=== PATIENT | female | born 1995 | race Caucasian/White ===

== ENCOUNTER 2016-09-18 14:49 | Emergency (ER) | payer OTHER ==
[~2016-09-18] VITALS: Ht 165.1 cm; Wt 86.2 kg
[2016-09-18 16:51] VITALS: BP 124/75
[2016-09-18 16:56] LABS: ABSOLUTE NEUTROPHILS 5.5 thou/uL (1.4-8.2); BASOPHILS 0.5 % (0.0-2.0); HEMATOCRIT 36.9 % (37.0-47.0); HEMOGLOBIN 12.6 gm/dL (12.0-15.0); MCH 28.7 pg (26.0-34.0); MCHC 34.1 g/dL (28.0-37.0); MCV 84.2 fL (80.0-100.0); PLATELET COUNT 343 thou/uL (150-400); POLYS 59.5 % (36.0-66.0); RBC 4.38 mil/uL (4.20-5.00); RDW 15.4 % (10.5-14.5); WBC 9.2 thou/uL (4.0-11.0)
[2016-09-18 16:57] LABS: MANUAL DIFF NO
[2016-09-18 17:06] LABS: ANION GAP 12 mmol/L (7-16); BUN 10 mg/dL (7-18); CALCIUM 9.1 mg/dL (8.5-10.1); CHLORIDE 107 mmol/L (98-107); CO2 20 mmol/L (21-32); CREATININE 0.7 mg/dL (0.6-1.0); GLUCOSE 112 mg/dL (74-106); POTASSIUM 3.6 mmol/L (3.5-5.1); SODIUM 139 mmol/L (136-145)
[2016-09-18 17:10] LABS: ALBUMIN 3.2 g/dL (3.4-5.0); ALKALINE PHOSPHATASE 73 U/L (46-116); SALICYLATE < 2.8 mg/dL (2.8-20.0); SGOT 13 U/L (15-37); SGPT 22 U/L (30-65); TOTAL BILIRUBIN 0.1 mg/dL (<0.1-1.0); TOTAL PROTEIN 7.3 g/dL (6.4-8.2)
[2016-09-18 17:19] LABS: AMP/METHAMP Negative (Negative); BARBITURATES Negative (Negative); BENZODIAZEPINES Negative (Negative); COCAINE Negative (Negative); METHADONE Negative (Negative); OPIATES Negative (Negative); PCP Negative (Negative); THC Negative (Negative)
[2016-09-18 17:21] LABS: ACETAMINOPHEN < 2 ug/mL (10-30)
== END 2016-09-18 20:25 | disposition home or self-care (01) ==
LOC: ER 14:49
PROVIDERS: Nurse Practitioner Family
DX: T74.21XA Adult sexual abuse, confirmed, initial encounter (principal); F25.0 Schizoaffective disorder, bipolar type; F41.9 Anxiety disorder, unspecified; I10 Essential (primary) hypertension; Z88.5 Allergy status to narcotic agent; Z88.0 Allergy status to penicillin; Z88.2 Allergy status to sulfonamides; Z88.8 Allergy status to other drugs, medicaments and biological substances

== ENCOUNTER 2017-03-11 05:20 | Day surgery (SDC) | payer OTHER ==
[~2017-03-11] VITALS: Ht 162.6 cm; Wt 83.9 kg
--- NOTE | ~2017-03-11 | O ---
[facility] [place] [address] OPERATIVE REPORT Name: CITLALI MCFADDEN Room #: [facility] M.R.#: [id number] Admission: 03/11/17 Attend Phys: Yuli Rodríguez DDS Discharge: 03/11/17 Date of : 95 Report #: [id number] THIS REPORT FOR: //name// CC: Yuli Castro DATE OF SERVICE: 03/11/2017 SURGEON: Yuli Rodríguez DDS. OCCUPATIONAL SAFETY SPECIALIST: Vidhi Herrera. DESCRIPTION OF PROCEDURE: Xrays obtained. Throat pack placed. All caries removed. Restorations completed as follows: #2 Mesial Occlusal amalgam. #3 Distal occlusal buccal amalgam with direct pulp cap. #4 Distal occlusal amalgam. #6 Mesial facial Fuji. #10 Distal facial Fuji. #11 Facial Fuji. #13 Distal occlusal buccal amalgam. #14 Mesial occlusal distal buccal amalgam. #15 Mesial occlusal amalgam. #18 Mesial occlusal amalgam. #19 Distal occlusal buccal with direct pulp using amalgam. #20 Occlusal amalgam. #21 Mesial occlusal distal amalgam, facial Fuji. #22 Mesial facial distal Fuji. #26 Facial Fuji. #27 Facial Mesial Fuji. #29 Distal occlusal buccal amalgam. #30 Distal occlusal buccal amalgam. #31 Mesial occlusal buccal amalgam. Prophy, flossing and fluoride varnish placed. Throat pack removed. ANESTHESIA TYPE: General. ESTIMATED BLOOD LOSS: 1 mL. COMMENTS:, Dr. Rodríguez explained to mom the #3 and #19 had decay that was into the nerve. She told her that root canals may be needed in the future. Mom understood. Dr. Rodríguez also informed mom that her jaw may be sore since it was [facility] [address] [place] [address] OPERATIVE REPORT Name: CITLALI MCFADDEN Room #: [facility].#: [id number] Admission: 03/11/17 Attend Phys: Yuli Rodríguez DDS Discharge: 03/11/17 Date of : 95 Report #: [id number] open for approximately 4 hours. Ibuprofen may be used to help alleviate any discomfort. Mom is to call the office if patient experiences any tooth pain. She is also to call and schedule the patient's 6-month recall appointment. <ELECTRONICALLY SIGNED> By: Yuli Rodríguez DDS 03/12/17 1248 1345 1405 Yuli Rodríguez DDS /nt
--- NOTE | ~2017-03-11 | EKG ---
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
--- NOTE | ~2017-03-11 | H ---
[facility] [place] [address] HISTORY AND PHYSICAL Name: CITLALI MCFADDEN Rigo Room #: [facility] M.R.#: [id number] Admission: Attend Phys: Yuli Rodríguez DDS Discharge: Date of : 95 Report #: [id number] THIS REPORT FOR: //name// CC: Yuli Castro The patient is scheduled for outpatient surgery on 03/11/2017. CHIEF COMPLAINT: Dental caries. HISTORY OF PRESENT ILLNESS: This 21-year-old patient presented in my office on 02/11/2017. For the past 5 years, the patient has been in full upper and lower orthodontics. She just had her braces removed. Due to her limited opening, we were unable to obtain x-rays. A clinical exam revealed caries on #11 #19 #21 #22 #23 #24 #26 #27 #29 #30 and #31. Due to her limited opening, the amount of treatment needed to be completed, her complex medical history, the need to obtain x-rays, the patient's mom and I decided the best treatment option would be to complete everything under general anesthesia. I did inform her mother that treatment will most likely change once x-rays are obtained. I also discussed with her the etiology of dental caries. Unfortunately, her mom does not help her brush because the patient lives in an assisted living facility. She has poor oral hygiene. I told mom that the patient will be caries free after leaving the hospital, but there is a high chance she will get recurrent and/or new caries in the future. Mom understood. PAST MEDICAL HISTORY: The patient's mom had a complete history and physical completed on 02/25/2017. The forms will be faxed over to the hospital to be included in her record. ALLERGIES: THE PATIENT'S MOM REPORTS THE PATIENT HAS ALLERGIES TO SULFA, CODEINE, AUGMENTIN, PENICILLIN, PROZAC, HALDOL, MORPHINE, SEROQUEL, PSEUDOEPHEDRINE HCL AND FLUOXETINE. DENTAL EXAMINATION: My clinical examination revealed caries on #11 #19 #21 #22 #23 #24 #26 #27 #29 #30 and #31. X-rays will be obtained while patient is sedated and all treatment will be completed as necessary. IMPRESSION: Dental caries. <ELECTRONICALLY SIGNED> By: Yuli Rodríguez DDS 03/06/17 0951 1001 1020 Yuli Rodríguez DDS /nt
[~2017-03-11 05:20] MED LIST: ALDACTONE25 MG PO; CENTRUM SILVER1 EAC4 PO; CLONAZEPAM 0.50.5 M1 PO; CLOZAPINE100 MG PO; CLOZAPINE200 MG PO; CLOZAPINE25 MG PO; CRANBERRY250 MG PO; EFFEXOR XR75 MG PO; METFORMIN HCL500 MG PO; MINASTRIN 24 F1 EACH PO; NASONEX17 GM NASAL; POT CITRATE-CI1 EACH PO; PROBIOTIC1 EAC1 PO; PROPRANOLOL 1010 M1 PO; TOPAMAX 100 MG100 MG PO; VITAMIN D2000 UNIT PO; XYZAL5 MG PO; ZANTAC 150MG T150 MG PO
[2017-03-11 06:52] LABS: CALCIUM 9.2 mg/dL (8.5-10.1); CREATININE 0.8 mg/dL (0.6-1.0); POTASSIUM 3.7 mmol/L (3.5-5.1)
[2017-03-11 08:07] VITALS: BP 132/88
[2017-03-11 12:07] VITALS: BP 132/88
== END 2017-03-11 13:04 | disposition home or self-care (01) ==
LOC: TBA 05:20 → OR 05:20
PROVIDERS: Anesthesiology
DX: K02.9 Dental caries, unspecified (principal); I10 Essential (primary) hypertension; E11.9 Type 2 diabetes mellitus without complications; G43.909 Migraine, unspecified, not intractable, without status migrainosus; J45.909 Unspecified asthma, uncomplicated; K21.9 Gastro-esophageal reflux disease without esophagitis; F41.8 Other specified anxiety disorders; F25.9 Schizoaffective disorder, unspecified; Z88.0 Allergy status to penicillin; Z87.442 Personal history of urinary calculi; Z88.2 Allergy status to sulfonamides; Z88.6 Allergy status to analgesic agent; Z88.8 Allergy status to other drugs, medicaments and biological substances; Z88.7 Allergy status to serum and vaccine; Z79.899 Other long term (current) drug therapy
CPT/HCPCS: 50010; 50101; 50398; 62110; 62900; 70005

== ENCOUNTER 2017-11-24 18:11 | Emergency (ER) | payer OTHER ==
[~2017-11-24] VITALS: Ht 165.1 cm; Wt 77.1 kg
[2017-11-24 18:45] LABS: URINE BILIRUBIN NEGATIVE (Negative); URINE BLOOD TRACE (Negative); URINE CLARITY CLEAR; URINE COLOR YELLOW; URINE GLUCOSE-RANDOM* NEGATIVE (Negative); URINE KETONES 1+ (Negative); URINE LEUKOCYTES 1+ (Negative); URINE NITRITE POSITIVE (Negative); URINE PROTEIN (DIPSTICK) NEGATIVE (Negative); URINE SPECIFIC GRAVITY 1.015 (1.005-1.035); URINE UROBILINOGEN 0.2 E.U./dl (0.2-1.0)
[2017-11-24 19:02] LABS: CASTS None Seen /LPF (None Seen); CRYSTALS None Seen /LPF (None Seen); SQUAMOUS 4-10 Moderate /LPF (0-3); URINE WBC 6-15 Few /HPF (0-5)
[2017-11-24 19:03] LABS: BACTERIA >30 Many /HPF (None Seen); URINE RBC 0-2 Rare /HPF (0-2)
[2017-11-24 19:22] LABS: ABSOLUTE NEUTROPHILS 6.5 thou/uL (1.4-8.2); BASOPHILS 0.2 % (0.0-2.0); HEMATOCRIT 37.1 % (37.0-47.0); HEMOGLOBIN 12.4 gm/dL (12.0-15.0); LYMPHOCYTES 35.9 % (24.0-44.0); MCH 28.7 pg (26.0-34.0); MCHC 33.6 g/dL (28.0-37.0); MCV 85.4 fL (80.0-100.0); MONOCYTES 6.7 % (1.0-8.0); PLATELET COUNT 366 thou/uL (150-400); POLYS 57.2 % (36.0-66.0); RBC 4.34 mil/uL (4.20-5.00); RDW 14.2 % (10.5-14.5); WBC 11.4 thou/uL (4.0-11.0)
[2017-11-24 19:29] LABS: CREATININE 0.7 mg/dL (0.6-1.0); POTASSIUM 3.6 mmol/L (3.5-5.1)
[2017-11-24] MEDS ORDERED: MACROBID 100 M100 M1 PO (19:52)
== END 2017-11-24 20:08 | disposition home or self-care (01) ==
LOC: ER 18:11
PROVIDERS: Emergency Medicine
DX: N39.0 Urinary tract infection, site not specified (principal); E87.1 Hypo-osmolality and hyponatremia; F41.9 Anxiety disorder, unspecified; F31.9 Bipolar disorder, unspecified; F25.9 Schizoaffective disorder, unspecified; F84.0 Autistic disorder; I10 Essential (primary) hypertension; G43.909 Migraine, unspecified, not intractable, without status migrainosus; K21.9 Gastro-esophageal reflux disease without esophagitis; J45.909 Unspecified asthma, uncomplicated; E11.9 Type 2 diabetes mellitus without complications; Z79.4 Long term (current) use of insulin; Z88.8 Allergy status to other drugs, medicaments and biological substances; Z88.7 Allergy status to serum and vaccine; Z88.5 Allergy status to narcotic agent; Z88.0 Allergy status to penicillin; Z88.2 Allergy status to sulfonamides; Z87.442 Personal history of urinary calculi

== ENCOUNTER 2018-02-21 14:44 | Emergency (ER) | payer OTHER ==
[~2018-02-21] VITALS: Ht 170.2 cm; Wt 78.9 kg
[~2018-02-21 14:44] MED LIST changes: +CITRATE OF MAG296 ML PO; +COLACE100 MG PO; +MACROBID 100 M100 M1 PO
[2018-02-21] MEDS ORDERED: MICROGESTIN FE1 EACH PO (15:19)
[2018-02-21] MEDS ORDERED: MOBIC7.5 MG PO (15:45)
== END 2018-02-21 16:27 | disposition home or self-care (01) ==
LOC: ER 14:44
DX: S13.4XXA Sprain of ligaments of cervical spine, initial encounter (principal); V49.19XA Passenger injured in collision with other motor vehicles in nontraffic accident, initial encounter; Y93.89 Activity, other specified; Y92.410 Unspecified street and highway as the place of occurrence of the external cause; Y99.8 Other external cause status; F25.0 Schizoaffective disorder, bipolar type; I10 Essential (primary) hypertension; G40.909 Epilepsy, unspecified, not intractable, without status epilepticus; K21.9 Gastro-esophageal reflux disease without esophagitis; E11.9 Type 2 diabetes mellitus without complications; J45.909 Unspecified asthma, uncomplicated; Z87.442 Personal history of urinary calculi; Z86.2 Personal history of diseases of the blood and blood-forming organs and certain disorders involving the immune mechanism; Z79.899 Other long term (current) drug therapy; Z88.0 Allergy status to penicillin; Z88.2 Allergy status to sulfonamides; Z88.5 Allergy status to narcotic agent; Z88.7 Allergy status to serum and vaccine; Z88.8 Allergy status to other drugs, medicaments and biological substances

== ENCOUNTER 2018-05-07 19:38 | Emergency (ER) | payer OTHER ==
[~2018-05-07] VITALS: Ht 165.1 cm; Wt 83.5 kg
[~2018-05-07 19:38] MED LIST changes: +MICROGESTIN FE1 EACH PO; +MOBIC7.5 MG PO
[2018-05-07] MEDS ORDERED: IBUPROFEN 800800 M1 PO (21:50)
[2018-05-07 22:06] VITALS: BP 126/70
== END 2018-05-07 22:06 | disposition home or self-care (01) ==
LOC: ER 19:38
DX: S01.81XA Laceration without foreign body of other part of head, initial encounter (principal); S80.02XA Contusion of left knee, initial encounter; F31.9 Bipolar disorder, unspecified; F41.9 Anxiety disorder, unspecified; I10 Essential (primary) hypertension; G43.909 Migraine, unspecified, not intractable, without status migrainosus; K21.9 Gastro-esophageal reflux disease without esophagitis; E11.9 Type 2 diabetes mellitus without complications; E28.2 Polycystic ovarian syndrome; J45.909 Unspecified asthma, uncomplicated; Z88.8 Allergy status to other drugs, medicaments and biological substances; Z88.7 Allergy status to serum and vaccine; Z88.5 Allergy status to narcotic agent; Z88.0 Allergy status to penicillin; Z88.2 Allergy status to sulfonamides; Z87.442 Personal history of urinary calculi; W18.39XA Other fall on same level, initial encounter; Y92.89 Other specified places as the place of occurrence of the external cause; Y93.89 Activity, other specified; Y99.8 Other external cause status

== ENCOUNTER 2018-06-19 05:26 | Day surgery (SDC) | payer OTHER ==
[~2018-06-19] VITALS: Ht 167.6 cm; Wt 82.6 kg
[~2018-06-19 05:26] MED LIST changes: +AIMOVIG AU70 MG/1 ML; +ATROPINE SULFATE2 ML SUBLING; +CITRATE OF MAG296 M1 PO; +CLOZAPINE100 M1 PO; +FOLIC ACID1 MG PO; +GLUCOPHAGE850 MG PO; +IBUPROFEN 800800 M1 PO; +OMEPRAZOLE40 MG PO; +POTASSIUM CITR10 ME1 PO; +PRAZOSIN HCL2 MG PO; +VENTOLIN HFA 1818 GM INH
[2018-06-19 06:46] VITALS: BP 126/82
[2018-06-19 06:47] LABS: CALCIUM 9.4 mg/dL (8.5-10.1); CREATININE 0.8 mg/dL (0.6-1.0); POTASSIUM 3.8 mmol/L (3.5-5.1)
[2018-06-19 06:53] LABS: ALBUMIN 3.5 g/dL (3.4-5.0); TOTAL BILIRUBIN 0.2 mg/dL (<0.1-1.0); TOTAL PROTEIN 8.3 g/dL (6.4-8.2)
--- NOTE | 2018-06-19 08:18 | EKG ---
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 : 1995 Requested By: Yuli Rodríguez Order Number: [id number] MD: Geovany Archuleta Measurements Intervals [place] Rate: 94 P: 18 IN: 147 QRS: 57 QRSD: 94 T: 44 QT: 361 QTc: 452 Interpretive Statements Sinus rhythm Nonspecific ST segment abnormality Compared to ECG 03/11/2017 06:39:39 No significant change was found Electronically Signed On 06-19-2018 8:18:40 YEAST DISTILLER by Geovany Archuleta [email or web address] <ELECTRONICALLY SIGNED> By: Geovany Archuleta MD, [facility] 06/19/1818 643 3 Geovany Archuleta MD, FACC /EPI
[2018-06-19 12:31] VITALS: BP 126/82
--- NOTE | 2018-06-19 13:50 | H ---
[facility] [place] [address] HISTORY AND PHYSICAL Name: CITLALI MCFADDEN Room #: 150-3 [facility] M.R.#: [id number] Admission: 06/19/18 Attend Phys: Yuli Rodríguez DDS Discharge: Date of : 95 Report #: [id number] THIS REPORT FOR: //name// CC: Yuli Castro DATE OF SERVICE: 06/19/2018 She is scheduled for outpatient surgery on 06-19-2018. HISTORY OF PRESENT ILLNESS: The patient presented to my office on 03/16/2018 with gross caries. The patient does not care for her teeth properly and as a result continues to get recurrent as well as new decay. The patient had limited opening making restoring her teeth difficult. The patient has not been reevaluated since her last visit. At this time, the plan is to place stainless steel crowns on 2, 3, 4, 13, 14, 15, 18, 19, 20, 21, 28, 29, 30 and 31. Composite restorations will be placed on 11 facial and 22 facial. Treatment may change and both the patient and the mother have had this explained to them. New x-rays may also be obtained during surgery. DRUG ALLERGIES: According to the patient's last H and P with her PCP on 06/05/2018, the patient has the following allergies: SULFA, PENICILLIN, CODEINE, SEROQUEL, PSEUDOEPHEDRINE HCL, FLUOXETINE, AND MORPHINE. MEDICAL HISTORY: According to the patient's last H and P with her PCP on 06/05/2018, the patient has PCOS, seizure disorder, anxiety, autistic, borderline personality disorder, migraines, prediabetic, kidney stones and tubular renal acidosis. Her H and P on 06/05/2018 has been sent to [facility] and includes her extensive list of medications. ASSESSMENT AND PLAN: All decay will be removed during surgery and restored properly. <ELECTRONICALLY SIGNED> By: Yuli Rodríguez DDS 06/19/18 1350 1424 1438 Yuli Rodríguez DDS /nt
--- NOTE | 2018-06-19 13:50 | O ---
[facility] [place] [address] OPERATIVE REPORT Name: CITLALI MCFADDEN Room #: 150-3 [facility] M.R.#: [id number] Admission: 06/19/18 Attend Phys: Yuli Rodríguez DDS Discharge: Date of : 95 Report #: [id number] THIS REPORT FOR: //name// CC: Yuli Castro DATE OF SERVICE: 06/19/2018 The patient was admitted for outpatient surgery on 06/19/2018. She presented with gross recurrent and new decay on #2, #3, #4, #6, #11, #13, #14, #15, #18, #19, #20, #21, #22, #28, #29, #30 and #31. Dr. Rodríguez was assisted by Vidhi Herrera. The throat pack was placed. All caries were removed. #6 had a mesial distal facial composite sikh placed, #11 and #22 had a facial composite placed, stainless steel crowns were placed on #2, #4 #13, #15, #18, #19, #29 and #31. An indirect pulp cap using limelight was placed on #14. A stainless steel crown was placed over #14. Some of the decay was extensive and extended into the pulp. As a result, Life was used as a direct pulp cap on #3, #20, #21, #28 and #30. Stainless steel crowns were placed on #3, #20, #21, #28 and #30. Throat pack was removed. The patient was under general anesthesia throughout the entire procedure. She lost approximately 10 mL of blood and was discharged on 06/19/2018. Mom was informed that the teeth with a direct pulp caps will most likely need root canal treatment in the future. <ELECTRONICALLY SIGNED> By: Yuli Rodríguez DDS 06/19/18 1350 1326 1341 Yuli Rodríguez DDS /nt
== END 2018-06-19 13:05 | disposition home or self-care (01) ==
LOC: OR 05:26 → TBA 05:26 → OR 12:31
PROVIDERS: Dentist General Practice
DX: K02.9 Dental caries, unspecified (principal); I10 Essential (primary) hypertension; E11.9 Type 2 diabetes mellitus without complications; K21.9 Gastro-esophageal reflux disease without esophagitis; G43.909 Migraine, unspecified, not intractable, without status migrainosus; J45.909 Unspecified asthma, uncomplicated; F41.9 Anxiety disorder, unspecified; F25.9 Schizoaffective disorder, unspecified; Z87.442 Personal history of urinary calculi; Z79.899 Other long term (current) drug therapy; Z88.0 Allergy status to penicillin; Z88.2 Allergy status to sulfonamides; Z88.8 Allergy status to other drugs, medicaments and biological substances; Z98.890 Other specified postprocedural states
CPT/HCPCS: 50010; 50101; 50398; 62110; 62900; 70005

== ENCOUNTER 2020-08-21 13:03 | Inpatient (IN) | payer OTHER ==
[~2020-08-21] VITALS: Ht 165.1 cm; Wt 90.7 kg
--- NOTE | ~2020-08-21 | EEG ---
[facility] [address] [address] ELECTROENCEPHALOGRAM Name: CITLALI MCFADDEN Room #: 457-P [facility] M.R.#: [id number] Admission: 08/21/20 Attend Phys: Maira Vela Discharge: Date of : 95 Report #: [id number] THIS REPORT FOR: //name// DATE OF SERVICE: 08/22/2020 This patient is being evaluated for recurrent seizure. She was going to have a video monitored EEG, but we have not been able to transfer her to the [facility] because they do not have any bed available, so I did an EEG in this patient. EEG was done by placing the electrode by standard 10-20 system of electrode placement. Both referential and sequential montages were used for recording. Background activity in this patient's EEG goes about 10 Hz and 40 microvolt. The patient becomes drowsy and that is associated with bilateral slowing and vertex sharp waves. Photic stimulation was unremarkable. On occasion, it looks like sporadic sharper activity may be present in the right temporal area. IMPRESSION: This patient's EEG does not demonstrate any non-convulsive status are very prominent seizure activity, but some sporadic sharper activity appeared to be present in the right temporal area. I do not have any prior EEG for comparison. The patient has a longstanding history of seizure, but is not possible to tell how many seizures are epileptiform event and how many are non-epileptiform event. For that, this patient will need video monitor EEG, so that her clinical spell can be compared with the EEG activity to see if they correlate. Thank you very much for this referral and if you have any question, please feel free to contact me. By: [id number] Rafa Rios MD /nt
--- NOTE | ~2020-08-21 | HC ---
[facility] [place] [address] CONSULTATION Name: CITLALI MCFADDEN Room #: 457-P [facility] M.R.#: [id number] Admission: 08/21/20 Attend Phys: Maira Auguste Discharge: 08/22/20 Date of : 95 Report #: [id number] THIS REPORT FOR: cc: Baltazar Castro MD,Rafa Funes MD, MD ~ DATE OF SERVICE: 08/22/2020 HISTORY OF PRESENT ILLNESS: This is a 25-year-old female patient on whom a consultation was requested to evaluate the patient for seizure. I was in the Emergency Room yesterday to see a stroke patient when nurse practitioner, Raeann Navarrete asked me a question about this patient that she is here for seizure, but follow up with an epileptologist at [facility]. I had asked her to call her neurologist at [facility] and see what they recommend and if she has further question after talking to them, she can contact me. She contacted her neurologist at [facility] and they recommended transfer to [facility] and the patient was going to be transferred to [facility]. I have asked her if I needed to see her and she said no, because the patient is going to be transferred to [facility] and just waiting for the bed. Today, I got a text from Dr. Recio that mom does not want to go to [facility]. Her text indicated that the patient's mom is not happy with the neurologist there. I called Dr. Recio that this patient is being followed by an epileptologist in conjunction with the nurse practitioner and she is a complicated patient and the place for her to go is tertiary care center like [facility]. Then, a consult was put in and I came to see the patient. The history I get in this patient is that this patient is an adopted child. She was with her mom as a foster child and subsequently she adopted her. She has had a seizure as a child as I understand. She used to go to [facility]. When she became adult, [facility] could not see her and she started going to Dr. Green who is an epileptologist at [facility]. According to mom, Dr. Green saw this patient twice and subsequently she started seeing his nurse practitioner who works in conjunction with Dr. Green and presently this patient is on Topamax 250 mg b.i.d. She keeps having seizures. The description of the seizures is not uniform. One time she said she was in a restaurant and she started having seizure in relation to flickering light. During that time, she raised her hand and she started jerking her head and she was unresponsive for some time. During another seizure, she does variable action. She occasionally shakes the whole body, but most of the time, it is jerking of the head or the neck. Those episodes are still occurring, but they are much subdued after admission. REVIEW OF SYSTEMS: Pretty extensive in this patient. This patient looks like [address] [address] CONSULTATION Name: CITLALI MCFADDEN Room #: 457-P [facility] M.R.#: [id number] Admission: 08/21/20 Attend Phys: Maira Auguste Discharge: 08/22/20 Date of : 95 Report #: [id number] has multiple psychiatric issues. She has a history of polycystic ovarian syndrome. She has a history of kidney stones, history of asthma, history of sepsis, seizure disorder. I do not think it has been established rather seizure disorder is all epileptic or some of the events are non-epileptiform event. She is on multiple psychiatric medications. Other complicated history is that the patient has history of migraine. She says she sees another neurologist, who subspecialized in migraine at [facility]. She tells me she sees 2 neurologists at [facility], one take care of her migraine and other take care of the patient's seizure. She takes multiple medications for her migraine. She takes calcitonin antagonist pretty much every month and she intermittently takes Maxalt. She has taken multiple other medications. She gets seizure in relation to giving her multiple other medications like morphine. PAST MEDICAL HISTORY: Positive for multiple issues as summarized above. FAMILY HISTORY: Not available much because she is adopted. SOCIAL HISTORY: She does not smoke or drink alcohol. PHYSICAL EXAMINATION: Indicate she is alert. She is responsive. She opens her eyes. She talks very softly. When I asked her what month it is, she is able to tell me, but she could not tell me the exact date. Cranial nerve examinations appear noncontributory. There is no meningeal sign in this patient. She is not in respiratory distress. VITAL SIGNS: Blood pressure is 116/90, respirations 20, pulse is 90, temperature is 97. IMPRESSION: I had a long talk with the patient and I had several talks with Dr. Recio. I talked to the patient's nurse and I talked to the patient's rn field case manager. This is a complicated patient and I had a talk with the patient's mother that the best thing for her is to get transferred to [facility] because that is where her both neurologists are for migraine and epilepsy and that is where her records are and that is where all the facilities are available, which we do not have. In my opinion, the first thing we need to determine if all the patient's episodes are epileptiform seizures or some of them are non-epileptiform event. For that, she will need a video monitored EEG when she is actually having these spells and according to mother, she is having those spells still, although they are subdued now. After we determined with as much certainty as possible, whether the spells are epileptiform or some of them are non-epileptiform event, only then, we can determine what will be the best course for her. As mentioned above, the first test will be to do a video monitored EEG. If it looks like that the epileptiform event then she is already on a pretty good dosages of [address] [address] CONSULTATION Name: CITLALI MCFADDEN Room #: 457-P [facility] M.R.#: [id number] Admission: 08/21/20 Attend Phys: Maira Auguste Discharge: 08/22/20 Date of : 95 Report #: [id number] Topamax and consideration should be given to either change her anticonvulsant depending upon what the EEG findings are as well as other spells look on the video or consider vagus nerve stimulator. Other options can also be considered depending upon the discussion with mom and at that stage, she needs to be evaluated for these options and also if there is any surgery, which can be beneficial. If these negative turner to be non-epileptiform event, she needs to follow up with a psychiatrist who subspecialized in non-epileptiform event and those are usually available in tertiary care center. I frankly told the patient's mother that in my view, the best place for her is to go to one of the tertiary care center and the need to evaluate the option. She needs to follow up with an epileptologist and somebody subspecializing in migraine along with psychiatric care. We do not have any of those above facilities available and neither we have video monitor EEG or any facility to even evaluate her for a vagus nerve stimulator if that need to be done. After talking to her, she is agreeable to go to [facility]. She said she will go only if they let her stay with her. I have asked the rn field case manager to find out and she is working on that. I have left a message for the nurse practitioner, neurologist to call back and as soon as I hear from her, I will talk to her. All of it was discussed with Dr. Recio in detail. More than 50 minutes of time was spent taking care of this patient today and majority was spent counseling and coordinating. By: [id number] Rafa Rios MD /nt
[~2020-08-21 13:03] MED LIST changes: -ALDACTONE25 MG PO; +ALDACTONE50 MG PO; +EMGALITY S300 MG/3 M SUBQ
[2020-08-21 13:19] VITALS: BP 116/70
[2020-08-21 14:22] LABS: ABSOLUTE NEUTROPHILS 9.1 thou/uL (1.4-8.2); BASOPHILS 0.4 % (0.0-2.0); HEMATOCRIT 36.6 % (37.0-47.0); HEMOGLOBIN 12.2 gm/dL (12.0-15.0); LYMPHOCYTES 29.3 % (24.0-44.0); MCH 29.6 pg (26.0-34.0); MCHC 33.4 g/dL (28.0-37.0); MCV 88.7 fL (80.0-100.0); MONOCYTES 3.8 % (1.0-8.0); PLATELET COUNT 375 thou/uL (150-400); POLYS 66.5 % (36.0-66.0); RBC 4.13 mil/uL (4.20-5.00); RDW 14.3 % (10.5-14.5); WBC 13.7 thou/uL (4.0-11.0)
[2020-08-21 14:33] LABS: CREATININE 0.8 mg/dL (0.6-1.0); POTASSIUM 3.2 mmol/L (3.5-5.1)
[2020-08-21 14:39] LABS: ALBUMIN 3.2 g/dL (3.4-5.0); TOTAL BILIRUBIN 0.1 mg/dL (0.2-1.0); TOTAL PROTEIN 7.7 g/dL (6.4-8.2)
[2020-08-21 14:40] LABS: URINE BILIRUBIN NEGATIVE (Negative); URINE BLOOD TRACE (Negative); URINE CLARITY CLEAR; URINE COLOR YELLOW; URINE GLUCOSE-RANDOM* NEGATIVE (Negative); URINE KETONES NEGATIVE (Negative); URINE LEUKOCYTES-REFLEX NEGATIVE (Negative); URINE NITRITE-REFLEX NEGATIVE (Negative); URINE PROTEIN (DIPSTICK) NEGATIVE (Negative); URINE UROBILINOGEN 0.2 E.U./dl (0.2-1.0)
[2020-08-21 14:49] LABS: AMP/METHAMP Negative (Negative); BARBITURATES Negative (Negative); BENZODIAZEPINES Negative (Negative); COCAINE Negative (Negative); METHADONE Negative (Negative); OPIATES Negative (Negative); PCP Negative (Negative)
[2020-08-21] MEDS ORDERED: VITAMIN D3100 MCG PO (14:55)
[2020-08-21] MEDS ORDERED: TAYTULLA 1 MG-1 EACH PO (14:58)
[2020-08-21] MEDS ORDERED: TOPROL XL50 MG (14:59)
[2020-08-21] MEDS ORDERED: FAMOTIDINE 20 M20 MG PO (15:02)
[2020-08-21] MEDS ORDERED: MERIBIN5 MG PO (15:04)
[2020-08-21] MEDS ORDERED: IRON18 M1 PO (15:05)
[2020-08-21 15:11] VITALS: BP 139/80
--- NOTE | 2020-08-21 19:23 | NUR ---
MOTHER REPORTS THAT SHE HAS TO STAY THE NIGHT WITH PT IN HOSPITAL PT WILL HAVE INCREASED BEHAVIORS THAT BECOME UNMANAGABLE WITHOUT MOTHER AT BEDSIDE. ERP IS AWARE.
[2020-08-21 23:02] VITALS: BP 117/70; BP 140/63
--- NOTE | 2020-08-22 02:28 | NUR ---
PT ADMITTED TO THE UNIT AT 2215 WITH C/O OF SEIZURE.PT HAD MULTIPLE SEIZURES(X4) YESTERDAY.PT HAS A LONG HX OF SEIZURES.MOM REPORT SEIZURES ARE WORSE THAN ANY SEIZURES PT HAS IVETT BEFORE.PT C/O HEADACHE POST SEIZURE ACTIVITIES.ADMISSION AND REASSESSMENT DONE .PT IV IN RT AC SL.PT MEDICATION STARTED AND FOR MUM TO BRING HOME MEDICATION NOT AVAILABLE HERE.SEIZURE AND FALL PRECAUTION IN PLACE.MUM SPEND THE NIGHT WITH PT APPROVED BY DRAPERY HANGER FOR BEHAVIORAL ISSUES.PT REMAINED CALM IN BED WITH NO SEIZURE TILL THIS TIME.WILL CONTINUE TO MONITOR
[2020-08-22 07:49] VITALS: BP 116/90
--- NOTE | 2020-08-22 14:00 | NUR ---
PT ADMITTED RELATED TO SEIZURE. CM REVIEWED CHART AND SPOKE WITH CARE TEAM. CM MET WITH PT AND HER MOTHER/GUARDIAN AT BEDSIDE THIS DAY. PT APPEARED TO BE A&O X 4. PT IS MINAMALLY VERBALLY RESPONSIVE BUT DID ASK IF SHE WAS DISCHARGEING HOME TODAY AND WHEN LUNCH WAS DURING CM'S VISIT. 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 PT HAD GONE TO [facility] [place] FOR NEUROLOGY CARES. MOTHER EXPRESSED DISATISFACTION WITH CARES THERE AND ASKED THAT PT BE SEEN HERE. SHE WOULD POTENTIALLY BE INTERESTED IN CHANGING SERVICE PROVIDERS IN THE FUTURE. PLAN WOULD BE FOR PT TO RETURN HOME AND RESUME 24/7 SERVICES THROUGH HER [employer] WAIVER ONCE MEDICALLY STABLE. CM FOLLOWING REGARDNG DC NEEDS.
[2020-08-22 15:35] VITALS: BP 111/61
[2020-08-22 17:20] VITALS: BP 116/90
[2020-08-22 18:15] LABS: HEMATOCRIT 37.2 % (37.0-47.0); MCH 28.7 pg (26.0-34.0); MCHC 32.2 g/dL (28.0-37.0); RBC 4.18 mil/uL (4.20-5.00); RDW 14.4 % (10.5-14.5); WBC 14.1 thou/uL (4.0-11.0)
--- NOTE | 2020-08-22 19:11 | NUR ---
Assumed pt care at 7am.Pt in bed sleeping on and off with mom at .Assessment completed.vss.Pt c/o headache.Fentanyl ivp given per request with partial relief.Dr Recio rounded on pt,order noted.Later this shift,Dr Rios rounded on pt and wanted pt transfer to [facility] due lack of equipment needed by pt. But Dr Recio discussed with pt mom,she prefered to dc home this evening. Dc summary compile and reviewed with pt and mom.Saline lock dc'd.At 1900,pt dc home in [place] with mom.Home med sent home with pt.
== END 2020-08-22 19:00 | disposition home or self-care (01) | DRG 101 ==
LOC: ER 13:03 → 4W 17:24 → EROBS 17:24 → 4W 22:03
PROVIDERS: Hospitalist; Nurse Practitioner Family; ADMIT Hospitalist; ATTEND Hospitalist
DX: G40.909 Epilepsy, unspecified, not intractable, without status epilepticus (principal); F84.0 Autistic disorder; F20.9 Schizophrenia, unspecified; G43.909 Migraine, unspecified, not intractable, without status migrainosus; F41.9 Anxiety disorder, unspecified; K21.9 Gastro-esophageal reflux disease without esophagitis; E28.2 Polycystic ovarian syndrome; J45.909 Unspecified asthma, uncomplicated; F31.9 Bipolar disorder, unspecified; D72.829 Elevated white blood cell count, unspecified; E66.9 Obesity, unspecified; I10 Essential (primary) hypertension; N25.89 Other disorders resulting from impaired renal tubular function; Z88.5 Allergy status to narcotic agent; Z88.2 Allergy status to sulfonamides; Z88.8 Allergy status to other drugs, medicaments and biological substances; Z79.899 Other long term (current) drug therapy; Z68.33 Body mass index [BMI] 33.0-33.9, adult; Z88.7 Allergy status to serum and vaccine
CPT/HCPCS: 10040